=== PATIENT | female | born 1950 | race Caucasian/White ===

== ENCOUNTER 2019-11-06 10:48 | Day surgery (SDC) | payer MEDICARE, OTHER ==
[~2019-11-06] VITALS: Ht 165.1 cm; Wt 135.2 kg
[2019-11-06 11:14] VITALS: BP 167/98
[2019-11-06] MEDS ORDERED: normal saline 1000ml 1,000 ML IV PRN (11:15)
[2019-11-06] MEDS ORDERED: LEVO50TA PO (11:36)
[2019-11-06] MEDS ORDERED: CHOL200052 PO (11:36)
[2019-11-06] MEDS ORDERED: TELM1TAB6 PO (11:36)
[2019-11-06] MEDS ORDERED: UBID100C16 PO (11:36)
[2019-11-06] MEDS ORDERED: PRAV20TA4 PO (11:36)
[2019-11-06] MEDS ORDERED: OMEG1CAP46 (11:36)
[2019-11-06] MEDS ORDERED: FERR325T28 PO (11:36)
[2019-11-06] MEDS ORDERED: FOLI0.8C (11:36)
[2019-11-06] MEDS ORDERED: ASPI-1053 PO (11:36)
[2019-11-06 11:55] LABS: BASOPHILS # (AUTO) 0.1 X10'3 (0-0.2); BASOPHILS % (AUTO) 0.8 % (0-1); EOSINOPHILS # (AUTO) 0.1 X10'3 (0-0.9); EOSINOPHILS % (AUTO) 1.8 % (0-6); HEMATOCRIT 40.2 % (35.0-45.0); HEMOGLOBIN 13.7 g/dl (12.0-16.0); LYMPHOCYTES % (AUTO) 28.6 % (21-51); MEAN CORPUSCULAR HEMOGLOBIN 30.5 PG (27.0-31.0); MEAN CORPUSCULAR HGB CONC 34.2 g/dL (33.0-36.5); MEAN CORPUSCULAR VOLUME 89.3 FL (78-98); MONOCYTES # (AUTO) 0.4 X10'3 (0-0.9); MONOCYTES % (AUTO) 6.5 % (2-12); NEUTROPHILS # (AUTO) 4.3 X10'3 (1.8-7.7); NEUTROPHILS % (AUTO) 62.3 % (42-75); PLATELET COUNT 254 X10'3 (140-440); RED CELL DISTRIBUTION WIDTH 13.8 % (11.5-14.5); WHITE BLOOD COUNT 6.9 X10'3 (4.5-11.0)
[2019-11-06] MEDS ORDERED: CHLOROprocaine 20mg/ml injection SQ ONE (12:10)
[2019-11-06 12:41] LABS: ALANINE AMINOTRANSFERASE 23 U/L (12-78); ALBUMIN 3.6 G/DL (3.4-5.0); ALKALINE PHOSPHATASE 140 IU/L (46-116); ANION GAP 9 (8-16); ASPARTATE AMINO TRANSFERASE 20 U/L (10-37); BILIRUBIN,TOTAL 0.7 MG/DL (0.1-1.0); BLOOD UREA NITROGEN 14 MG/DL (7-18); BUN/CREATININE RATIO 11.6 (6.6-38.0); CALCIUM 9.1 MG/DL (8.5-10.1); CHLORIDE 105 MMOL/L (99-107); CREATININE 1.21 MG/DL (0.40-0.90); GLUCOSE 102 MG/DL (70-104); POTASSIUM 4.4 MMOL/L (3.5-5.1); SODIUM 141 MMOL/L (135-145); TOTAL CARBON DIOXIDE 26.9 MMOL/L (24-32); TOTAL PROTEIN 7.2 G/DL (6.4-8.2); eGFR 44 ML/MIN
[2019-11-06] MEDS ORDERED: midazolam 2 mg/2 ml injection ONE ×3 (13:27→14:06)
[2019-11-06] MEDS ORDERED: fentaNYL/PF 50MCG/1 ML 2ML syringe ONE ×3 (13:27→14:06)
[2019-11-06] MEDS ORDERED: heparin sodium, porcine/PF 100unit/ml 5ML syringe ONE (13:33)
[2019-11-06 14:38] VITALS: BP 116/72
[2019-11-06 14:46] VITALS: BP 123/51
[2019-11-06 15:00] VITALS: BP 143/96
[2019-11-06 15:30] VITALS: BP 119/70
== END 2019-11-06 15:45 | disposition home or self-care (01) ==
LOC: SSTAY O 10:48
PROVIDERS: ATTEND Radiology Diagnostic Radiology
DX: C50.211 Malignant neoplasm of upper-inner quadrant of right female breast (principal); Z88.5 Allergy status to narcotic agent; Z88.8 Allergy status to other drugs, medicaments and biological substances; E03.9 Hypothyroidism, unspecified; I10 Essential (primary) hypertension; J44.9 Chronic obstructive pulmonary disease, unspecified; E66.9 Obesity, unspecified; Z68.42 Body mass index [BMI] 45.0-49.9, adult; Z86.73 Personal history of transient ischemic attack (TIA), and cerebral infarction without residual deficits; Z90.710 Acquired absence of both cervix and uterus; Z98.890 Other specified postprocedural states; Z79.82 Long term (current) use of aspirin; Z79.899 Other long term (current) drug therapy
CPT/HCPCS: 36415; 36561; 76937; 77001; 80053; 85025; 85610; 99152; 99153; C1769; C1788; C1894; J1642; J2250; J3010; J7030; A6213; J2400